=== PATIENT | female | born 1995 | race African-American/Black ===

== ENCOUNTER 2018-10-18 11:47 | Emergency (ER) | payer SELFPAY ==
[~2018-10-18] VITALS: Ht 172.7 cm; Wt 68.0 kg
[2018-10-18] MEDS ORDERED: IPRATROPIUM BROMIDE (0.02%) 0.5MG/2.5ML NEB HHN STA (12:14)
[2018-10-18] MEDS ORDERED: ALBUTEROL (0.083%) 2.5MG/3ML NEB HHN STA (12:14)
[2018-10-18] MEDS ORDERED: LORAZEPAM 0.5MG TABLET PO ONE (12:15)
[2018-10-18 13:20] VITALS: BP 115/90
== END 2018-10-18 13:21 | disposition home or self-care (01) ==
LOC: ER 11:47
DX: J45.901 Unspecified asthma with (acute) exacerbation (principal); F41.9 Anxiety disorder, unspecified
CPT/HCPCS: 94640; 99284; J7611; Z7610